=== PATIENT | male | born 1945 | race Caucasian/White ===

== ENCOUNTER 2018-10-10 18:59 | Inpatient (IN) | payer BC, OTHER ==
[~2018-10-10] VITALS: Ht 172.7 cm; Wt 86.0 kg
--- NOTE | ~2018-10-10 | EKG ---
[address] [employer] [place] [address] ELECTROCARDIOGRAM REPORT Name: THERESA JAVIER Room #: 202-P ADM IN M.R.#: [id number] ������������������ Admission: 10/10/18 ������������������ Attend Phys: Roberto Rose MD Discharge: ������������������ Date of : 47 Report #: [id number] ����������������������������������������������������������������� [id number] THIS REPORT FOR: //name// [facility] ED Test Date: 2018-10-10 Test Time: 21:58:59 Pat Name: THERESA JAVIER Department: Room: 202 P Gender: M Nurses' Association Counselor: EBEN : 1945 Requested By: Roberto Rose Order Number: [id number] MD: Measurements Intervals [place] Rate: 161 P: ID: QRS: 96 QRSD: 75 T: -37 QT: 269 QTc: 440 Interpretive Statements Atrial fibrillation with rapid V-rate Right axis deviation Repolarization abnormality, prob rate related Baseline wander in lead(s) I,II,aVR,V6 No previous ECG available for comparison [email or web address] ��������������������������������������������� ���������������������������������������� By: ��������������������������������������������� 2158 2158 Epiphany MD Osiot /EPI
--- NOTE | ~2018-10-10 | HC ---
[facility] [place] [address] CONSULTATION Name: THERESA JAVIER Room #: 202-P ADM IN M.R.#: [id number] Admission: 10/10/18 ������������������ Attend Phys: Hayder Nichols MD Discharge: ������������������ Date of : 47 Report #: [id number] THIS REPORT FOR: //name// CC: Hayder Shannon CHIEF COMPLAINT: Abdominal pain. HISTORY OF PRESENT ILLNESS: The patient is a 72-year-old male who presented with complaints of right upper quadrant pain that he has been having for the last couple of days. He has also been having reduced bowel movement for the last 3-4 days. The patient is not a diabetic. This has been associated with nausea and 3 episodes of vomiting. The patient has a remote history of similar episode in the past; however, evaluation of the gallbladder was negative. The patient continues to have right upper quadrant pain. PAST MEDICAL HISTORY: History of atrial fibrillation, on Eliquis. PAST SURGICAL HISTORY: None significant. CURRENT MEDICATIONS: He is currently on: 1. Allopurinol. 2. Eliquis. 3. Digoxin. 4. Diltiazem. ALLERGIES: No known drug allergies. REVIEW OF SYSTEMS: A 10-point review of system was taken and is negative, except as noted in the HPI. PHYSICAL EXAMINATION: GENERAL: The patient appears comfortable and is not in apparent distress. VITAL SIGNS: Blood pressure is 129/83, pulse is 87 per minute. HEENT: Normocephalic, atraumatic. He is anicteric. CARDIOVASCULAR: Heart sounds are regular in rate and rhythm. No murmurs or added sounds. RESPIRATORY SYSTEM: Breath sounds are bilaterally equal and are clear to auscultation. ABDOMEN: Soft with mild tenderness in the right upper quadrant. Worley sign is positive. EXTREMITIES: No cyanosis or pedal edema. LABORATORY DATA: White cell count is 12.1, hemoglobin is 15. BUN is 35, creatinine is 1.2. Liver function tests show elevated bilirubin and marginally elevated AST, ALT and alkaline phosphatase. CT scan of the abdomen and pelvis and an ultrasound showed features consistent with acute cholecystitis and ileus. [facility] [address] [place] [address] CONSULTATION Name: YAYA,THERESA RIOJAS Room #: 202-P [facility] IN M.R.#: [id number] Admission: 10/10/18 ������������������ Attend Phys: Hayder Nichols MD Discharge: ������������������ Date of : 46 Report #: [id number] ASSESSMENT AND PLAN: The patient is a 72-year-old male who has features of acute cholecystitis, possible choledocholithiasis. I shall repeat his liver function test tomorrow. He has been taking Eliquis until yesterday. We shall plan on laparoscopic cholecystectomy and cholangiogram possibly tomorrow or day after tomorrow. I have explained to him, however, the procedure in detail, including the risk of infection, bleeding, damage to surrounding structures including bowel and bile duct. The patient shows understanding and agrees to proceed. ��������������������������������������������� ���������������������������������������� By: ��������������������������������������������� 24 1333 Tito Bonds MD /emir
[~2018-10-10 18:59] MED LIST: ALLOPURINOL 30300 M1 PO; DIGOXIN250 MCG PO; ELIQUIS5 MG PO; MATZIM LA360 MG PO; NORCO 5-325 TA1 EACH PO; SENNA-DOCUSATE1 EACH PO; ZOFRAN ODT4 MG PO
[2018-10-10 19:06] VITALS: BP 119/83
[2018-10-10 19:55] LABS: URINE BILIRUBIN NEGATIVE (Negative); URINE BLOOD NEGATIVE (Negative); URINE CLARITY CLEAR; URINE COLOR YELLOW; URINE GLUCOSE-RANDOM* NEGATIVE (Negative); URINE KETONES 1+ (Negative); URINE LEUKOCYTES-REFLEX NEGATIVE (Negative); URINE NITRITE-REFLEX NEGATIVE (Negative); URINE PROTEIN (DIPSTICK) NEGATIVE (Negative)
[2018-10-10 21:23] LABS: BASOPHILS 0.1 % (0.0-2.0); HEMATOCRIT 48.9 % (42.0-52.0); HEMOGLOBIN 16.8 gm/dL (14.0-18.0); LYMPHOCYTES 2.4 % (24.0-44.0); MCH 31.6 pg (26.0-34.0); MCHC 34.3 g/dL (28.0-37.0); MCV 92.1 fL (80.0-100.0); MONOCYTES 11.1 % (1.0-8.0); PLATELET COUNT 268 thou/uL (150-400); POLYS 86.4 % (36.0-66.0); RBC 5.31 mil/uL (4.50-6.00); RDW 13.5 % (10.5-14.5); WBC 16.2 thou/uL (4.0-11.0)
[2018-10-10 21:38] LABS: CALCIUM 9.5 mg/dL (8.5-10.1); CREATININE 1.5 mg/dL (0.7-1.3); POTASSIUM 4.1 mmol/L (3.5-5.1)
[2018-10-10 21:44] LABS: ALBUMIN 3.5 g/dL (3.4-5.0); TOTAL BILIRUBIN 2.5 mg/dL (<0.1-1.0); TOTAL PROTEIN 7.6 g/dL (6.4-8.2)
[2018-10-10 22:36] VITALS: BP 141/60
[2018-10-10 23:47] VITALS: BP 153/106
[2018-10-11 03:36] LABS: CALCIUM 8.2 mg/dL (8.5-10.1); CREATININE 1.2 mg/dL (0.7-1.3); POTASSIUM 3.5 mmol/L (3.5-5.1)
[2018-10-11 04:10] LABS: HEMATOCRIT 43.7 % (42.0-52.0); MCH 31.6 pg (26.0-34.0); MCHC 34.3 g/dL (28.0-37.0); MCV 92.2 fL (80.0-100.0); RBC 4.74 mil/uL (4.50-6.00); RDW 13.6 % (10.5-14.5); WBC 12.1 thou/uL (4.0-11.0)
--- NOTE | 2018-10-11 04:22 | NUR ---
PT ARRIVED ON UNIT AT ABOUT 2300. ADMISSION AND ASSESSMENT COMPLETE DOCUMENTED. PATIENT ADMITTED WITH ABDOMINAL PAIN AND AFIB WITH RVR. START ON CARDIZEM TITRATE. PT ALSO HAS AN NG TUBE AND REPORTS FEELING BETTER SINCE THE DECOMPRESSION WAS INITATED. NO PAIN REPORTED. PT OTHERWISE AO X4. PT HAS A PACE MAKER AND ALSO EXPERIENCES EPISODES OF AV DISOCIATION- . ALL SEEM ASYMPTOMATIC. WILL CONTINUE TO FOLLOW POC.
[2018-10-11 05:06] VITALS: BP 134/72
[2018-10-11 07:40] VITALS: BP 134/67
--- NOTE | 2018-10-11 08:13 | EKG ---
[address] [address] ELECTROCARDIOGRAM REPORT Name: THERESA JAVIER Room #: 202-P ADM IN M.R.#: [id number] ������������������ Admission: 10/10/18 ������������������ Attend Phys: Hayder Nichols MD Discharge: ������������������ Date of : 47 Report #: [id number] ����������������������������������������������������������������� [id number] THIS REPORT FOR: //name// [facility] ED Test Date: 2018-10-10 Test Time: 21:58:59 Pat Name: THERESA JAVIER Department: Room: 202 P Gender: M Switchboard Clerk: EBEN : 1945 Requested By: Roberto Rose Order Number: [id number] MD: Bryce Hopper Measurements Intervals [place] Rate: 161 P: ID: QRS: 96 QRSD: 75 T: -37 QT: 269 QTc: 440 Interpretive Statements Atrial fibrillation with rapid V-rate Right axis deviation Repolarization abnormality, prob rate related Baseline wander in lead(s) I,II,aVR,V6 No previous ECG available for comparison Electronically Signed On 10-11-2018 8:13:32 CDT by Bryce Hopper [email or web address] ��������������������������������������������� <ELECTRONICALLY SIGNED> ���������������������������������������� By: Bryce Hopper MD ��������������������������������������������� 10/11/18 0813 57 Bryce Hopper MD /EPI
[2018-10-11 08:29] VITALS: BP 139/67
[2018-10-11 11:05] VITALS: BP 140/76
--- NOTE | 2018-10-11 12:16 | 2DMMODE ---
[facility] [address] [place] [address] 2 D/M-MODE ECHOCARDIOGRAM Name: THERESA JAVIER Room #: 202-P ADM IN M.R.#: [id number] ������������� Admission: 10/10/18 ������������� Attend Phys: Hayder Nichols MD Discharge: ��� ������������� ��� Date of : 47 Date of Service: 10/11/18 1216 �� Report #: [id number] �������� ��������������������������������������������[id number] THIS REPORT FOR: //name// APPROVED REPORT Study performed: 10/11/2018 08:55:33 EXAM: Comprehensive 2D, Doppler, and color-flow Echocardiogram Patient Location: Bedside Room #: 202 Status: routine BSA: 1.92 HR: 97 bpm BP: 134/72 mmHg Rhythm: Atrial Fibrillation Other Information Study Quality: Adequate Indications Atrial Fibrillation Pacemaker 2D Dimensions RVDd: 45.78 mm IVSd: 9.99 (7-11mm) LVOT Diam: 20.80 (18-24mm) LVDd: 48.36 mm PWd: 9.78 (7-11mm) Ascending Ao: 33.62 (22-36mm) LVDs: 31.19 (25-40mm) Aortic Root: 33.86 mm IVC: 22.00 mm Volumes Left Atrial Volume (Systole) Single Plane 4CH: 58.13 mL Single Plane 2CH: 74.28 mL LA ESV Index: 41.00 mL/m2 Aortic Valve AoV Peak Chris.: 1.41 m/s AO Peak Gr.: 7.95 mmHg LVOT Max P.10 mmHg LVOT Max V: 1.01 m/s CARA Vmax: 2.44 cm2 Pulmonary Valve PV Peak Chris.: 0.99 m/s PV Peak Gr.: 3.89 mmHg [facility] [address] [place] [address] 2 D/M-MODE ECHOCARDIOGRAM Name: THERESA JAVIER RIOJAS Room #: 202- ADM IN ..#: [id number] ������������� Admission: 10/10/18 ������������� Attend Phys: Hayder Nichols MD Discharge: ��� ������������� ��� Date of : 47 Date of Service: 10/11/18 1216 �� Report #: [id number] �������� ��������������������������������������������[id number] Tricuspid Valve TR Peak Chris.: 2.29 m/s TR Peak Gr.: 21.03 mmHg PA Pressure: 31.00 mmHg Left Ventricle The left ventricle is normal size. There is normal LV segmental wall motion. There is normal left ventricular wall thickness. The left ventricular systolic function is normal. The left ventricular ejection fraction is within the normal range. LVEF is 60-65%. This study is not technically sufficient to allow evaluation of the LV diastolic function due to atrial fibrillation. Right Ventricle The right ventricle is normal size. The right ventricular systolic function is normal. Pacemaker lead is present in the right ventricle. Atria Left atrium is mildly dilated. Right atrium size is normal. Pacemaker lead is present in the right atrium. Aortic Valve The aortic valve is normal in structure. No aortic regurgitation is present. There is no aortic valvular stenosis. Mitral Valve The mitral valve is normal in structure. Mild mitral regurgitation. No evidence of mitral valve stenosis. Tricuspid Valve The tricuspid valve is normal in structure. There is mild tricuspid regurgitation. Estimated PAP 30 mmHg. There is mild pulmonary hypertension. Pulmonic Valve The pulmonary valve is normal in structure. There is no pulmonic valvular regurgitation. Great Vessels The aortic root is normal in size. IVC is dilated and collapses >50% with inspiration. Pericardium There is no pericardial effusion. <Conclusion> [facility] [address] [place] [address] 2 D/M-MODE ECHOCARDIOGRAM Name: THERESA JAVIER Room #: 202-P ADM IN M.R.#: [id number] ������������� Admission: 10/10/18 ������������� Attend Phys: Hayder Nichols MD Discharge: ��� ������������� ��� Date of : 47 Date of Service: 10/11/18 1216 �� Report #: [id number] �������� ��������������������������������������������[id number] The left ventricular systolic function is normal. There is normal LV segmental wall motion. LVEF is 60-65%. The aortic valve is normal in structure. No aortic regurgitation or stenosis. The mitral valve is normal in structure. Mild mitral regurgitation. There is mild tricuspid regurgitation. Estimated pulmonary artery pressure of 30 mmHg. Pacing wires in the right heart There is no pericardial effusion. ��������������������������������������������� <ELECTRONICALLY SIGNED> ���������������������������������������� By: Imtiaz Salvador MD, [facility] ��������������������������������������������� 10/11/18 1216 121 15 Imtiaz Salvador MD, [facility] /INF
[2018-10-11 15:30] VITALS: BP 137/58
--- NOTE | 2018-10-11 19:17 | NUR ---
PATIENT ALERT AND ORIENTED, NG TUBE DC'D, NPO AFTER MIDNIGHT, POSSIBLE CHOLYCYSTECTOMY TOMORROW. CALL LIGHT WITHIN REACH, PATIENT HAS NO NEEDS.
[2018-10-11 19:35] VITALS: BP 129/83
[2018-10-12] VITALS (8 sets, daily range): BP systolic 13–144; BP diastolic 63–78
--- NOTE | 2018-10-12 02:44 | NUR ---
ASSUMED PT CARE AT 1900. PT A/OX4, VITAL SIGNS STABLE, ASSESSMENT CHARTED. NO COMPLAINTS OF CHEST PAIN. PT ON CARDIZEM DRIP, UNCONTROLLED AFIB. PAIN ADEQAUTELY MANAGED WITH PAIN MEDICATION. NPO AFTER MIDNIGHT FOR POSSIBLE LAP RAHEEM. RESTED WELL THROUGH THE NIGHT. PROGRESSING TOWARD PLAN OF CARE. WILL CONTINUE TO MONITOR.
[2018-10-12 03:46] LABS: CALCIUM 7.9 mg/dL (8.5-10.1); CREATININE 0.9 mg/dL (0.7-1.3); MAGNESIUM 1.9 mg/dL (1.8-2.4); POTASSIUM 3.2 mmol/L (3.5-5.1)
--- NOTE | 2018-10-12 09:01 | EKG ---
[address] [place] [address] ELECTROCARDIOGRAM REPORT Name: THERESA JAVIER Room #: 202-P ADM IN M.R.#: [id number] ������������������ Admission: 10/10/18 ������������������ Attend Phys: Hayder Nichols MD Discharge: ������������������ Date of : 47 Report #: [id number] ����������������������������������������������������������������� [id number] THIS REPORT FOR: //name// [facility] Test Date: 2018-10-12 Test Time: 07:03:48 Pat Name: THERESA JAVIER Department: Room: 202 P Gender: M Tube Carrier: ANUSHA : 1945 Requested By: Imtiaz Salvador Order Number: [id number] MD: Bryce Hopper Measurements Intervals [place] Rate: 93 P: [place]: QRS: -35 QRSD: 79 T: 224 QT: 326 QTc: 406 Interpretive Statements Atrial fibrillation Abnormal R-wave progression, late transition Baseline wander in lead(s) II,V6 Compared to ECG 10/10/2018 21:58:59 Electronically Signed On 10-12-2018 9:01:17 CDT by Bryce Hopper [email or web address] ��������������������������������������������� <ELECTRONICALLY SIGNED> ���������������������������������������� By: Bryce Hopper MD ��������������������������������������������� 10/12/18900 2 2 Bryce Hopper MD /CYNTHIA
[2018-10-12 09:40] LABS: HEMATOCRIT 43.4 % (42.0-52.0); HEMOGLOBIN 14.5 gm/dL (14.0-18.0); MCH 31.2 pg (26.0-34.0); MCHC 33.5 g/dL (28.0-37.0); MCV 93.1 fL (80.0-100.0); PLATELET COUNT 234 thou/uL (150-400); RBC 4.65 mil/uL (4.50-6.00); RDW 13.3 % (10.5-14.5); WBC 12.2 thou/uL (4.0-11.0)
[2018-10-12 10:00] LABS: ALBUMIN 2.6 g/dL (3.4-5.0); CALCIUM 8.4 mg/dL (8.5-10.1); CREATININE 0.9 mg/dL (0.7-1.3); POTASSIUM 3.3 mmol/L (3.5-5.1); TOTAL BILIRUBIN 1.3 mg/dL (<0.1-1.0); TOTAL PROTEIN 5.3 g/dL (6.4-8.2)
[2018-10-12 10:18] LABS: ABSOLUTE NEUTROPHILS 9.3 thou/uL (1.4-8.2)
[2018-10-12 10:19] LABS: ANISOCYTOSIS SLIGHT
--- NOTE | 2018-10-12 17:19 | NUR ---
PATIENT ALERT AND ORIENTED. CONTINUES ON CARDIZEM DRIP. ON FULL LIQUID DIET, LAP CHOLY IS SCHEDULED 10/13/18 IN THE AFTERNOON. PATIENT WILL BE NPO AFTER MIDNIGHT.
[2018-10-13] VITALS (11 sets, daily range): BP systolic 100–130; BP diastolic 52–85
--- NOTE | 2018-10-13 03:13 | NUR ---
ASSUMED PT CARE AT 1900. PT A/OX4, VITAL SIGNS STABLE, ASSESSMENT CHARTED. NO COMPLAINTS OF CHEST PAIN. ABDOMINAL PAIN ADEQUATELY MANAGED WITH PAIN MEDICATION. PT RESTED WELL THROUGH THE NIGHT. NPO SINCE MIDNIGHT. CONSENT SIGNED. PROGRESSING TOWARD PLAN OF CARE. WILL CONTINUE TO MONITOR.
[2018-10-13 04:24] LABS: ALBUMIN 2.3 g/dL (3.4-5.0); CREATININE 0.8 mg/dL (0.7-1.3); DIRECT BILIRUBIN 0.4 mg/dL (<0.1-0.3); POTASSIUM 3.7 mmol/L (3.5-5.1); TOTAL PROTEIN 4.9 g/dL (6.4-8.2)
--- NOTE | 2018-10-13 08:48 | EKG ---
[place] [address] [address] [employer] [place] [address] ELECTROCARDIOGRAM REPORT Name: THERESA JAVIER Room #: 202-P ADM IN M.R.#: [id number] ������������������ Admission: 10/10/18 ������������������ Attend Phys: Hayder Nichols MD Discharge: ������������������ Date of : 47 Report #: [id number] ����������������������������������������������������������������� [id number] THIS REPORT FOR: //name// [facility] Test Date: 2018-10-12 Test Time: 11:23:38 Pat Name: THERESA JAVIER Department: Room: 202 P Gender: M Retail Account Representative: Chaya LIEBERMAN : 1945 Requested By: Hayder Nichols Order Number: [id number] MD: Imtiaz Salvador Measurements Intervals [place] Rate: 145 P: [place]: QRS: 73 QRSD: 76 T: -52 QT: 299 QTc: 465 Interpretive Statements Atrial fibrillation with rapid V-rate Poor R wave progression Nonspecific ST and T wave abnormality Compared to ECG 10/12/2018 07:03:48 No significant change was found Electronically Signed On 10-13-2018 8:48:32 CDT by Imtiaz Salvador [email or web address] ��������������������������������������������� <ELECTRONICALLY SIGNED> ���������������������������������������� By: Imtiaz Salvador MD, [facility] ��������������������������������������������� 10/13/18 0848 1123 1123 Imtiaz Salvador MD, [facility] /EPI
--- NOTE | 2018-10-13 19:29 | NUR ---
ASSESSMENT DOCUMENT. PT ALERT AND ORIENTED. RECEIVED PRN PAIN MED WITH PARTIAL RELIEF. HAD LAP RAHEEM WITH GRAM THIS SHIFT. HAS 4 LAP SITE WITH DERMABOND. VENKATA DRAIN IN PLACE. WILL CONTINUE TO MONITOR.
[2018-10-14] VITALS (10 sets, daily range): BP systolic 112–134; BP diastolic 57–86
--- NOTE | 2018-10-14 07:23 | NUR ---
ASSESSMENT DOCUMENTED. STILL ON CARDIZEM DRIP, HR WENT UP TO HIGH 140 TO 160'S. CARDIZEM TITRATED. COMPLAINT OF PAIN ON THE MID ABDOMEN MORE ON THE RIGHT, SHARP PAIN. PRN MEDS FOR PAIN GIVEN. UNABLE TO PEE DESPITE NURSING MEASURES. BLADDER SCAN DONE WITH 862 ML OF URINE. CALLED SHAUN FREEMAN AND SHE ORDERED FOR A STRAIGHT CATH, DONE ASEPTICALLY. OBTAINED 750 ML OF DARK ANDRE URINE OUTPUT. FF UP POC.
[2018-10-14] MEDS ORDERED: HYDROCODON-ACE1 EAC7 PO (13:51)
[2018-10-14] MEDS ORDERED: ATENOLOL 50MG T50 M1 PO (14:24)
--- NOTE | 2018-10-14 14:47 | NUR ---
Chart reviewed and case discussed with the care team. Possible dc home later today or tomorrow. Pt advancing his diet and weaning off cardizem gtt. No cm interventions indicated. Pt is indep with gait and adl's. He has health insurance in place for f/u care and scripts.
--- NOTE | 2018-10-14 18:01 | NUR ---
PATIENT ARRIVED FROM 3W, IS SCHIZOPHRENIC, BIPOLAR AND ALCOHOL WITHDRAWAL, HAS A HISTORY OF SEIZURES, ALERT AND ORIENTED X 1, INCONTINENT OF B&B, D5 NS @ 100. CIWA PERFORMED AND ATIVAN GIVEN.
--- NOTE | 2018-10-14 18:24 | NUR ---
PATIENT ALERT AND ORIENTED, CHOLY INCISIONS CLEAN, DRY AND INTACT, UP TO CHAIR, AMBULTED IN THE WILLIAM DIGGS DRIP SANDOR'Veto. VENKATA DRAIN DC'D. OK TO WITH CARDIAC, GI, AND SURGEON THAT PATIENT BE DISCHARGED TO HOME ACCOMPANIED BY SIGNIFICANT OTHER.
--- NOTE | 2018-10-14 18:33 | NUR ---
DISCHARGE INSTRUCTIONS GIVEN TO PT. PT VERBERLIZE UNDERSTANDING.
--- NOTE | 2018-10-17 08:52 | HC ---
[facility] [place] [address] CONSULTATION Name: THERESA JAVIER Room #: 202-P [facility] IN M.R.#: [id number] Admission: 10/10/18 ������������������ Attend Phys: Hayder Nichols MD Discharge: 10/14/18 ������������������ Date of : [birth year] Report #: [id number] THIS REPORT FOR: //name// CC: Hayder Shannon REASON FOR CONSULTATION: Atrial fibrillation. HISTORY OF PRESENT ILLNESS: The patient is a 72-year-old gentleman who has a history of paroxysmal atrial fibrillation and prior pacemaker implantation. He has been followed by Dr. Aj at [facility] [place], now presents with 4 days of nausea and vomiting. He has had trouble keeping his medicines down including Cardizem and apixaban. His atrial fibrillation has been largely asymptomatic. He was admitted with bowel obstruction and has had improvement in his abdominal pain with NG tube placement. Intravenous Cardizem has been started for rate control of his atrial fibrillation. His last dose of apixaban was yesterday morning. He denies chest pain, pressure or ischemic type symptoms. No heart failure symptoms including orthopnea, paroxysmal nocturnal dyspnea or lower extremity edema. No history of near syncope or syncope. MEDICATIONS: Include allopurinol 300 mg daily, apixaban 5 mg twice daily, digoxin 0.25 mg daily, diltiazem CD 360 mg daily. PAST MEDICAL HISTORY: Medical records have been reviewed and include history of pacemaker, Medtronic and paroxysmal atrial fibrillation. 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 FAMILY HISTORY: Notable for father who had a stroke at the age of 57. REVIEW OF SYSTEMS: All systems negative except as that noted above. PHYSICAL EXAMINATION: GENERAL: Reveals a pleasant gentleman who is alert and in no distress. VITAL SIGNS: Blood pressure is 134/72, heart rate is 89 and irregular, temperature is 99.6 degrees, 5 feet 8 inches tall, 173 pounds. HEENT: There are neither xanthelasma, subcutaneous xanthomata, oral mucosal or digital cyanosis or kyphoscoliosis present. CHEST: Clear to auscultation and percussion. CARDIAC: An irregularly irregular rhythm with normal S1, S2. ABDOMEN: Soft with mild tenderness. EXTREMITIES: Without cyanosis, clubbing or edema. Radial pulses are 2+. NEUROLOGIC: He is alert with a nonfocal exam. LABORATORY DATA: EKG, atrial fibrillation with nonspecific ST segment abnormality. Sodium 132, potassium 3.5, creatinine 1.2, alkaline phosphatase [address] [address] CONSULTATION Name: THERESA JAVIER Room #: 202-[facility] IN M.R.#: [id number] Admission: 10/10/18 ������������������ Attend Phys: Hayder Nichols MD Discharge: 10/14/18 ������������������ Date of : 47 Report #: [id number] 133, ALT 81. White count 12.1, hemoglobin 15, hematocrit 43, platelet count 236. Abdominal ultrasound demonstrates distended and thickened gallbladder, dilated loops of small bowel were seen on KUB. IMPRESSION: 1. Paroxysmal atrial fibrillation. 2. Bowel obstruction, possible cholecystitis. 3. History of Medtronic pacemaker implantation; sick sinus syndrome. 4. Acute kidney injury. RECOMMENDATIONS: 1. Intravenous Cardizem until able to take p.o. medications. 2. Hold apixaban in case surgical intervention is required. 3. Thyroid function studies. 4. Echocardiogram with Doppler. ��������������������������������������������� <ELECTRONICALLY SIGNED> ���������������������������������������� By: Imtiaz Salvador MD, [facility] ��������������������������������������������� 10/17/18 0852 0747 2318 Imtiaz Salvador MD, FAC /nt
--- NOTE | 2018-10-17 18:05 | PATH ---
[facility] [address] [place] [address] PATHOLOGY RPT PROCEDURE Name: THERESA RUSSO Room #: 202-P [facility] IN M.R.#: [id number] ������������������ Admission: 10/10/18 ������������������ Date of : 47 Discharge: 10/14/18 Report #: [id number] Path Case #: [id number] [facility] Accession Number: [id number] . 01 Material submitted: . gallbladder - GALLBLADDER . 01 Clinical history: . Acute cholecystitis . 02 Diagnosis: Gallbladder, cholecystectomy: - Marked acute cholecystitis associated with extensive ulceration and fibrinous exudate. - Cholelithiasis. (IUV:valentin; 10/17/2018) QMS/10/17/2018 . 02 Electronically signed: . Britney Mcgregor MD, Pathologist NPI- [id number] . 01 Gross description: . Received in formalin labeled "Theresa Russo, gallbladder," is a previously opened gallbladder measuring 7.9 x 4.4 x 2.9 cm in greatest dimensions. The serosal surface is ragged and valladares-brown to hemorrhagic in appearance. A defect is noted at the fundal aspect, with valladares, fibrous adhesions surrounding the defect. Opening the specimen reveals a ragged, dark valladares-brown to hemorrhagic mucosa measuring 0.1 cm in thickness with a gallbladder wall thickness of up to 0.7 cm. No polyps or nodules are noted grossly. Calculi are present within the specimen that are granular and yellow-brown in appearance, ranging from 0.4 to 1.0 cm in maximum dimension. Sales Development Representative sections of the infundibulum, body and fundus are submitted in cassette A1, to include the fundal aspect defect and surrounding adhesions. ([facility]; 10/14/2018) XDC/XDC . 02 Pathologist provided ICD-10: K80.00 . 02 CPT . 868846 Specimen Comment: A courtesy copy of this report has been sent to Specimen Comment: [phone], , . Specimen Comment: Report sent to ,DR BUCIO / DR WARD Performed at: [address] [place] [address] PATHOLOGY RPT PROCEDURE Name: THERESA RUSSO Room #: 202-P [facility] IN M.R.#: [id number] ������������������ Admission: 10/10/18 ������������������ Date of : 47 Discharge: 10/14/18 Report #: [id number] Path Case #: [id number] [facility] [place] [address] [place] [address] [address], [place], [place] [id number] MD Nito Forrest MD Phone: [phone] Performed at: [address] [id number] MD Britney Mcgregor MD Phone: [phone]
== END 2018-10-14 19:21 | disposition home or self-care (01) | DRG 357 ==
LOC: ER 18:59 → EROBS 22:07 → 2N 22:07 → ENTRNSPT 10-14 18:00 → 2N 10-14 19:21
PROVIDERS: Internal Medicine; Internal Medicine Gastroenterology; Nurse Practitioner Family; Surgery; ADMIT Internal Medicine
PROC: 0D9670Z Drainage of Stomach with Drainage Device, Via Natural or Artificial Opening (ICD-10-PCS; principal; 2018-10-10)
PROC: 0FT44ZZ Resection of Gallbladder, Percutaneous Endoscopic Approach (ICD-10-PCS; 2018-10-13)
PROC: BF121ZZ Fluoroscopy of Gallbladder using Low Osmolar Contrast (ICD-10-PCS; 2018-10-13)
DX: K56.600 Partial intestinal obstruction, unspecified as to cause (principal); K81.0 Acute cholecystitis; N17.9 Acute kidney failure, unspecified; E87.1 Hypo-osmolality and hyponatremia; E46 Unspecified protein-calorie malnutrition; I48.1 Persistent atrial fibrillation; I48.0 Paroxysmal atrial fibrillation; E80.6 Other disorders of bilirubin metabolism; I25.10 Atherosclerotic heart disease of native coronary artery without angina pectoris; M10.9 Gout, unspecified; I10 Essential (primary) hypertension; E87.6 Hypokalemia; R33.9 Retention of urine, unspecified; Z68.28 Body mass index [BMI] 28.0-28.9, adult; Z95.0 Presence of cardiac pacemaker; Z87.891 Personal history of nicotine dependence; Z79.01 Long term (current) use of anticoagulants; Z79.899 Other long term (current) drug therapy; Z82.3 Family history of stroke
CPT/HCPCS: 10081; 50010; 50101; 50331; 50411; 50555; 50900; 51489; 51578; 51975; 52265; 52266; 52287; 53307; 53310; 54022; 54118; 55245; 56462; 56525; 56526; 56527; 62110; 62900; 70005